=== PATIENT | female | born 1960 | race Caucasian/White ===

== ENCOUNTER 2020-12-25 17:08 | Emergency (ER) | payer OTHER ==
[2020-12-25] MEDS ORDERED: Boostrix 0.5 ML (Tdap) VIAL ONE (17:38)
[2020-12-25] MEDS ORDERED: Sulfameth/Trimethoprim DS 800-160mg TAB ONE (17:46)
[2020-12-25] MEDS ORDERED: Bacitracin 1 PK ONE (17:46)
== END 2020-12-25 18:00 | disposition home or self-care (01) ==
LOC: MADERS 17:08
DX: S01.452A Open bite of left cheek and temporomandibular area, initial encounter (principal); E78.5 Hyperlipidemia, unspecified; E78.00 Pure hypercholesterolemia, unspecified; W54.0XXA Bitten by dog, initial encounter
CPT/HCPCS: 90471; 90715